=== PATIENT | male | born 1975 | race African-American/Black ===

== ENCOUNTER 2019-12-20 16:03 | Emergency (ER) | payer OTHER ==
[~2019-12-20] VITALS: Ht 172.7 cm; Wt 113.4 kg
[2019-12-20 16:40] LABS: URINE BILIRUBIN NEGATIVE (Negative); URINE BLOOD NEGATIVE (Negative); URINE CLARITY CLEAR; URINE COLOR YELLOW; URINE GLUCOSE-RANDOM NEGATIVE (Negative); URINE KETONES NEGATIVE (Negative); URINE LEUKOCYTES-REFLEX NEGATIVE (Negative); URINE NITRITE-REFLEX NEGATIVE (Negative); URINE PROTEIN TRACE (Negative); URINE SPECIFIC GRAVITY >= 1.030 (1.005-1.030); URINE UROBILINOGEN 0.2 E.U./dl (0.2-1.0)
[2019-12-20 17:11] LABS: ABSOLUTE EOSINOPHILS 0.3 thou/uL (0.0-0.7); ABSOLUTE LYMPHOCYTES 1.7 thou/uL (0.8-5.3); ABSOLUTE MONOCYTES 0.8 thou/uL (0.0-1.2); ABSOLUTE NEUTROPHILS 3.4 thou/uL (1.6-8.1); BASOPHILS 0.5 %; EOSINOPHILS 4.7 %; HEMATOCRIT 40.6 % (42.0-52.0); HEMOGLOBIN 13.3 gm/dL (14.0-18.0); MCH 25.3 pg (26.0-34.0); MCHC 32.7 g/dL (28.0-37.0); MCV 77.3 fL (80.0-100.0); MONOCYTES 12.7 %; MPV 7.1 fl. (7.2-11.1); NUCLEATED RBCS 0 /100WBC; PLATELET COUNT* 288 thou/uL (150-400); POLYS 55.1 %; RBC 5.25 mil/uL (4.50-6.00); RDW-CV 15.2 % (10.5-14.5); WBC 6.2 thou/uL (4.0-11.0)
[2019-12-20 17:20] LABS: CALCIUM 8.6 mg/dL (8.5-10.1); CREATININE 1.1 mg/dL (0.6-1.3); POTASSIUM 4.1 mmol/L (3.5-5.1)
[2019-12-20 17:24] LABS: ALBUMIN 3.5 g/dL (3.4-5.0); TOTAL BILIRUBIN 0.3 mg/dL (<0.1-1.0); TOTAL PROTEIN 8.5 g/dL (6.4-8.2)
[2019-12-20] MEDS ORDERED: IBUPROFEN 800800 M1 PO (18:14)
[2019-12-20] MEDS ORDERED: FLEXERIL PO (18:14)
[2019-12-20 18:33] VITALS: BP 148/78
--- NOTE | 2019-12-21 16:25 | EKG ---
[place] [address] ELECTROCARDIOGRAM REPORT Name: JOVANI BERRYELL Arpit Room: [facility]#: [id number] Admission: 12/20/19 Attend Phys: Discharge: 12/20/19 Date of : 77 Date of Service: 12/20/19 1700 Report #: [id number] THIS REPORT FOR: //name// [facility] ED Test Date: 2019-12-20 Test Time: 17:00:21 Pat Name: RADHA BERRY Department: Room: Gender: Quality Assurance Lead: [facility] [place] 1975 Requested By: Josette Perry Order Number: [id number] : Surinder Panchal Measurements Intervals [place] Rate: 97 P: 54 CA: 182 QRS: 34 QRSD: 87 T: 77 QT: 342 QTc: 435 Interpretive Statements Sinus rhythm Consider left ventricular hypertrophy Anterior Q waves, possibly due to LVH No previous ECG available for comparison Electronically Signed On 12-21-2019 16:25:34 SOLE [employer] by Surinder Panchal [email or web address] <ELECTRONICALLY SIGNED> By: Surinder Panchal MD, [facility] 12/21/19 1625 99 99 Surinder Panchal MD, FAC /EPI
== END 2019-12-20 18:34 | disposition home or self-care (01) ==
LOC: M.ERS 16:03
PROVIDERS: Nurse Practitioner Family
DX: R10.84 Generalized abdominal pain (principal); I10 Essential (primary) hypertension; M19.90 Unspecified osteoarthritis, unspecified site; E66.9 Obesity, unspecified; Z68.38 Body mass index [BMI] 38.0-38.9, adult